=== PATIENT | male | born 1940 | race Caucasian/White ===

== ENCOUNTER 2018-04-18 14:37 | Emergency (ER) | payer OTHER ==
[2018-04-18] MEDS ORDERED: Nitroglycerin TAB 0.4 MG* 0.4 MG TAB SL ONE (15:18)
[2018-04-18] MEDS ORDERED: Aspirin 81 mg CHEW TAB* 81 MG TAB.CHEW PO ONE (15:18)
--- NOTE | 2018-04-18 15:21 | ED ---
Upper Extremity Pain - HPI Summary HPI Summary: This pt is a 77 y/o male presenting to [facility] c/o sudden onset of left arm pain and burning s/p IV infusion today. He states that he received IV infusion of Vitamin C through his RIGHT arm today. Time of onset was approximately at 13: 30. As he was almost finished with the infusion pt had sudden onset of left arm pain. Pt describes a burning and squeezing sensation from his left shoulder down to his left wrist. He notes this pain is continuous. Pt has never had this pain the past. Denies chest pain, SOB, fever, chills, nausea, vomiting, arthritis, neck pain, blurry vision. Denies hx of DM or AK. PMHx HTN. Pt did not take his antihypertensive medications today. Pt is a former smoker, quit 50 years ago. NKDA. - History of Current Complaint Chief Complaint: EDHypertension Stated Complaint: LEFT ARM PAIN Time Seen by Provider: 04/18/18 15:08 Hx Obtained From: Patient Mechanism Of Injury: Other - no trauma Onset/Duration: Started Minutes Ago, Atraumatic, Still Present Timing: Constant Severity Currently: Severe Pain Location: Arm - left arm, from shoulder down to wrist Character: Burning - and squeezing Aggravating Factor(s): Nothing Alleviating Factor(s): Nothing Associated Signs & Symptoms: Negative: Fever, Chest Pain, SOB, Neck Pain, Nausea , Vomiting, Other - Allergies/Home Medications Allergies/Adverse Reactions: Allergies Allergy/AdvReac Type Severity Reaction Status Date / Time No Known Drug Allergies Allergy See Comment Verified 04/18/18 14:45 PMH/Surg Hx/FS Hx/Imm Hx Endocrine/Hematology History: Denies: Hx Diabetes Cardiovascular History: Reports: Hx Hypertension Denies: Hx Myocardial Infarction - Cancer History Cancer Type, Location and Year: bladder CA Infectious Disease History: No Infectious Disease History: Denies: Traveled Outside the [place] in Last 30 Days - Family History Known Family History: Negative: Cardiac Disease - Social History Alcohol Use: None Substance Use Type: Reports: None Smoking Status (MU): Former Smoker Review of Systems Negative: Fever, Chills Negative: Blurred Vision Negative: Chest Pain Negative: Shortness Of Breath Negative: Vomiting, Nausea Negative: Arthralgia, Other - neck pain All Other Systems Reviewed And Are Negative: Yes Physical Exam - Summary Physical Exam Summary: GENERAL: Patient is a well developed and nourished male who is lying comfortable in the stretcher. Patient is not in any acute respiratory distress. HEAD AND FACE: Normocephalic EYES: PERRLA, EOMI x 2. EARS: Hearing grossly intact. MOUTH: Oropharynx within normal limits. NECK: Supple, trachea is midline, no adenopathy, no JVD, no carotid bruit. CHEST: Symmetric, no tenderness at palpation LUNGS: Clear to auscultation bilaterally. No wheezing or crackles. CVS: Regular rate and rhythm, S1 and S2 present, no murmurs or gallops appreciated. ABDOMEN: Soft, non-tender. Bowel sounds are normal. No abdominal abnormal pulsations. EXTREMITIES: Full ROM in all major joints, no edema, no cyanosis or clubbing. NEURO: Alert and oriented x 3. No acute neurological deficits. Speech is normal and follows commands. SKIN: Dry and warm Triage Information Reviewed: Yes Vital Signs On Initial Exam: Initial Vitals Temp Pulse Resp BP Pulse Ox 98.1 F 69 16 200/89 96 04/18/18 14:41 04/18/18 14:41 04/18/18 14:41 04/18/18 14:41 04/18/18 14:41 Vital Signs Reviewed: Yes Diagnostics - Vital Signs Vital Signs Temp Pulse Resp BP Pulse Ox 04/18/18 15:00 70 17 95 04/18/18 14:52 70 18 186/93 95 04/18/18 14:44 73 14 97 04/18/18 14:41 98.1 F 69 16 200/89 96 - Laboratory Result Diagrams: 04/18/18 15:37 04/18/18 15:37 Lab Statement: Any lab studies that have been ordered have been reviewed, and results considered in the medical decision making process. - Radiology Chest XR Radiology Interpretation Completed By: Radiologist Summary of Radiographic Findings: IMPRESSION: No active cardiopulmonary disease is noted. Dr. Finn has reviewed this report. - EKG 15:24 Cardiac Rate: NL - at 80 bpm EKG Rhythm: Sinus Rhythm Ectopy: PVCs Summary of EKG Findings: RBBB. Re-Evaluation - Re-Evaluation First Eval Re-Evaluation Time: 17:04 Change: Improved Comment: Pt reports his left arm pain is now 2/10 in severity. He states his pain was better even before getting nitroglycerin. Course/Dx - Course Assessment/Plan: Pt is a 77 y/o male who presents with sudden onset of LEFT arm pain, burning, and squeezing s/p IV infusion today. He states that he received IV infusion of Vitamin C through his RIGHT arm today. Time of onset of pain was approximately at 13:30. Pt did not respond to nitro. We have to rule him out for atypical chest pain. The plan is to send the pt home if second troponin is negative. EKG shows normal sinus rhythm with PVCs and RBBB. No old EKG to compare but patient is aware of these EKG changes. Pt will be signed out to Dr. Javier at shift change pending second troponin. - Diagnoses Provider Diagnoses: Atypical chest pain Discharge - Sign-Out/Discharge Documenting (check all that apply): Sign-Out Patient Signing out patient TO: Ash Javier - pending second troponin - Discharge Plan Condition: Stable Referrals: Cathleen REYNOLDS,Opal Mcdermott [Primary Care Provider] - - Billing Disposition and Condition Condition: STABLE - Attestation Statements Document Initiated by Scribe: Yes Documenting Scribe: Katie Temple Provider For Whom Scribe is Documenting (Include Credential): Rio Finn MD Scribe Attestation: IKatie, scribed for Rio Finn MD on 04/18/18 at 1842. Scribe Documentation Reviewed: Yes Provider Attestation: The documentation as recorded by the scribeKatie accurately reflects the service I personally performed and the decisions made by me, Rio Finn MD Status of Scribe Document: Viewed
[2018-04-18 15:50] LABS: ABS Basophils 0 10^3/ul (0-0.2); ABS Eosinophils 0.1 10^3/ul (0-0.6); ABS Lymphocytes 0.9 10^3/ul (1.0-4.8); ABS Monocytes 0.5 10^3/ul (0-0.8); ABS Neutrophils 5.5 10^3/ul (1.5-7.7); ABS Nucleated RBC 0 10^3/ul; Hematocrit 48 % (42-52); Hemoglobin 15.9 g/dl (14.0-18.0); Lymphocyte % 13.3 %; Mean Corpuscular HGB Conc 33 g/dl (31-36); Mean Corpuscular Hemoglobin 31 pg (27-31); Mean Corpuscular Volume 93 fL (80-94); Mean Platelet Volume 9.9 fL (7.4-10.4); Nucleated Red Blood Cells % 0; Platelet Count 176 10^3/ul (150-450); Red Blood Count 5.16 10^6/ul (4.00-5.40); Red Cell Distribution Width 15 % (10.5-15); White Blood Count 7.1 10^3/ul (3.5-10.8)
[2018-04-18 16:01] LABS: Activated Partial Thrombo Time 30.9 seconds (26.0-36.3); INR 0.95 (0.77-1.02)
[2018-04-18] MEDS ORDERED: Ketorolac INJ* 15 MG/ML 1 ML VIAL IV PUSH ONE (16:18)
[2018-04-18] MEDS ORDERED: traMADol TAB* 50 MG PO ONE (16:19)
[2018-04-18 16:20] LABS: Albumin 3.9 g/dL (3.2-5.2); Albumin/Globulin Ratio 1.3 (1-3); Calcium 8.9 mg/dL (8.6-10.3); EGFR Non-African American 23.9 (>60); Globulin 3.1 g/dL (2-4); Total Bilirubin 0.2 mg/dL (0.2-1.0)
--- NOTE | 2018-04-18 20:12 | ED ---
Progress - Progress Note Progress Note: RECEIVING SIGN-OUT FROM DR. CONLEY AT SHIFT CHANGE PENDING 2nd TROP. 2011: ED provider at bedside. Pt is a 77 y/o M presenting to [facility] with c/o LUE pain and burning onset today. Discussing second troponin which is unchanged. Will D/C home. Re-Evaluation - Re-Evaluation First Eval Re-Evaluation Time: 00:00 Course/Dx - Course Course Of Treatment: RECEIVING SIGN-OUT FROM DR. CONLEY AT SHIFT CHANGE PENDING 2ND TROP. Pt is a 77 y/o M presenting to [facility] with c/o LUE pain and burning onset today. 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 RETURN TO THE EMERGENCY DEPARTMENT FOR CHANGING OR WORSENING SYMPTOMS. - Billing Disposition and Condition Condition: IMPROVED Disposition: Home - Attestation Statements Document Initiated by Scribe: Yes Documenting Scribe: Tyree Mcdermott Provider For Whom Karny is Documenting (Include Credential): Dr. Ash Javier MD Scribe Attestation: Tyree Hinojosa scribed for Dr. Ash Javier MD on 04/19/18 at 0109. Scribe Documentation Reviewed: Yes Provider Attestation: The documentation as recorded by the Tyree mendoza accurately reflects the service I personally performed and the decisions made by me, Dr. Ash Javier MD Status of Scribe Document: Viewed
[2018-04-18 20:36] VITALS: BP 141/67
== END 2018-04-18 20:41 | disposition home or self-care (01) ==
LOC: ED 14:37
DX: R07.89 Other chest pain (principal); I45.10 Unspecified right bundle-branch block; I10 Essential (primary) hypertension; Z87.891 Personal history of nicotine dependence
CPT/HCPCS: 36415; 71045; 80053; 83605; 83735; 83880; 84484; 85025; 85610; 85730; 93005; 99284; A9270-GY